=== PATIENT | female | born 1945 | race Caucasian/White ===

== ENCOUNTER 2021-12-14 10:11 | Outpatient (CLI) | payer BC, MEDICARE | END 2021-12-14 10:12 | disposition home or self-care (01) | LOC: CSHULT 10:11 | PROVIDERS: ATTEND Otolaryngology Plastic Surgery within the Head & Neck | DX: E04.1 Nontoxic single thyroid nodule (principal); E04.2 Nontoxic multinodular goiter | CPT/HCPCS: 76536 ==

== ENCOUNTER 2022-07-11 14:16 | Outpatient (CLI) | payer BC, MEDICARE ==
[2022-07-11] MEDS ORDERED: Magnevist 469MG/ML 20 ML VIAL ONE (18:29)
== END 2022-07-11 14:17 | disposition home or self-care (01) ==
LOC: CSHMRI 14:16
PROVIDERS: ATTEND Family Medicine
DX: M54.16 Radiculopathy, lumbar region (principal); M47.816 Spondylosis without myelopathy or radiculopathy, lumbar region; M51.36 Other intervertebral disc degeneration, lumbar region; M48.061 Spinal stenosis, lumbar region without neurogenic claudication; M51.37 Other intervertebral disc degeneration, lumbosacral region; Z98.890 Other specified postprocedural states
CPT/HCPCS: 72158; A9579

== ENCOUNTER → 2022-08-02 | Outpatient (CLI) | payer BC, MEDICARE | LOC: CSHMRI 16:00 | PROVIDERS: ATTEND Specialist | DX: M54.12 Radiculopathy, cervical region (principal); M47.812 Spondylosis without myelopathy or radiculopathy, cervical region; M50.30 Other cervical disc degeneration, unspecified cervical region; M48.02 Spinal stenosis, cervical region | CPT/HCPCS: 72141 ==